=== PATIENT | male | born 2005 ===

== ENCOUNTER 2024-03-06 17:19 | Emergency (ER) | payer OTHER ==
[2024-03-06 17:29] VITALS: TEMP 98.9
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
[2024-03-06 17:41] LABS: Glucose,Whole Blood 117 mg/dL (70-110)
[2024-03-06 17:49] LABS: Basophils % (A) 0 %; Eosinophils # (A) 0.1 k/uL (0-0.7); Eosinophils % (A) 2 %; HCT 42.7 % (39.0-53.0); HGB 14.7 gm/dL (13.0-17.5); Lymphocytes # (A) 2.6 k/uL (1.0-4.8); Lymphocytes % (A) 36 %; MCH 29.7 pg (25.0-35.0); MCHC 34.4 g/dL (31.0-37.0); MCV 86.3 fL (80.0-100.0); Mean Platelet Volume 7.3; Monocytes # (A) 0.4 k/uL (0-1.0); Monocytes % (A) 5 %; Neutrophils # (A) 3.9 k/uL (1.3-7.7); Neutrophils % (A) 55 %; Platelet Count 280 k/uL (150-450); RBC 4.95 m/uL (4.30-5.90); RDW 12.9 % (11.5-15.5); WBC 7.1 k/uL (3.8-10.6)
[2024-03-06] MEDS: LIDOCAINE 2%-EPI 1:100,000 20 ML VIAL SQ STA (17:49)
[2024-03-06] MEDS: DIPH,PERTUS(ACELL)TETVAC-LF 0.5 ML VIAL IM ONE (17:50)
--- NOTE | 2024-03-06 17:57 | XR ---
EXAMINATION TYPE: XR pelvis AP view DATE OF EXAM: 03/06/2024 CLINICAL HISTORY: pain TECHNIQUE: Single view the pelvis is submitted. FINDINGS: No evidence for fracture, dislocation or bony lesion. Joint spaces are well-preserved. S I joints appear symmetric. IMPRESSION: 1. No acute fracture or dislocation seen. ICD 10 NO FRACTURE, INITIAL EVALUATION
--- NOTE | 2024-03-06 17:58 | XR ---
EXAMINATION TYPE: XR chest 1V portable DATE OF EXAM: 03/06/2024 COMPARISON: NONE HISTORY: Chest pain TECHNIQUE: Single frontal view of the chest is obtained. FINDINGS: There is no focal air space opacity, pleural effusion, or pneumothorax seen. The cardiac silhouette size is within normal limits. The osseous structures are intact. IMPRESSION: 1. No acute process.
[2024-03-06 17:59] LABS: INR 1.1 (<1.2); Partial Thromboplastin Time 24.7 sec (22.0-30.0); Prothrombin Time 11.7 sec (10.0-12.5)
[2024-03-06 18:05] LABS: ALT 12 U/L (4-49); AST 23 U/L (17-59); African American GFR (CKD) >90 (>60 ml/min/1.73 sqM); Albumin 4.7 g/dL (3.5-5.0); Alcohol <10 mg/dL; Alkaline Phosphatase 53 U/L (38-126); Anion Gap 8 mmol/L; Blood Urea Nitrogen 11 mg/dL (9-20); Calcium 9.7 mg/dL (8.4-10.2); Carbon Dioxide 24 mmol/L (22-30); Chloride 108 mmol/L (98-107); Glucose 111 mg/dL (74-99); Non-African American GFR(CKD) >90 (>60 ml/min/1.73 sqM); Sodium 140 mmol/L (137-145); Total Bilirubin 0.7 mg/dL (0.2-1.3); Total Protein 7.3 g/dL (6.3-8.2)
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
[2024-03-06 19:06] VITALS: BP 123/83; PULSE 80; RESP 18
[2024-03-06 19:07] LABS: Amphetamine Screen,Urine Not Detected (NotDetected); Barbiturate Screen,Urine Not Detected (NotDetected); Benzodiazepines Screen,Urine Not Detected (NotDetected); Cocaine Screen,Urine Not Detected (NotDetected); Methadone Screen, Urine Not Detected (NotDetected); Opiate Screen,Urine Not Detected (NotDetected); Oxycodone Screen, Urine Not Detected (NotDetected); Phencyclidine Screen,Urine Not Detected (NotDetected); Tricyclic Antidepressant,Urine Not Detected (NotDetected); Urn Cannabinoid Scrn Detected (NotDetected)
== END 2024-03-06 19:10 | disposition home or self-care (01) ==
LOC: EC 17:19
DX: S09.90XA Unspecified injury of head, initial encounter (principal); Z87.891 Personal history of nicotine dependence; Z23 Encounter for immunization; V29.99XA Rider (driver) (passenger) of other motorcycle injured in unspecified traffic accident, initial encounter; Y92.410 Unspecified street and highway as the place of occurrence of the external cause
CPT/HCPCS: 12002; 36415; 70450; 71045; 72125; 72170; 80053; 80306; 80320; 84484; 85025; 85610; 85730; 86850; 86900; 86901; 90471; 90715; 93005; 99284